=== PATIENT | female | born 1965 | race Caucasian/White ===

== ENCOUNTER 2023-07-14 14:32 | Inpatient (IN) | payer BC, SELFPAY ==
[2023-07-14] VITALS (10 sets, daily range): BP systolic 100–137; BP diastolic 51–76; BMI 22.0
[2023-07-14 12:20] LABS: % Basophils 0.5 % (0-2); % Eosinophils 0.9 % (0-6); % Immature Granulocytes 0.5 % (0-0.5); % Lymphocytes 10.8 % (20.5-51.1); % Monocytes 6.5 % (1.7-9.3); % Neutrophils 80.8 % (42.2-75.2); Absolute Basophils 0.1 10^3/uL (0-0.2); Absolute Eosinophils 0.1 10^3/uL (0-0.7); Absolute Immature Granulocytes 0.1 10^3/uL (0-0.05); Absolute Lymphocytes 1.1 10^3/uL (1.2-3.4); Absolute Monocytes 0.6 10^3/uL (0.1-0.6); Absolute Neutrophils 7.9 10^3/uL (1.4-6.5); Hematocrit 32.5 % (37.0-47.0); Hemoglobin 11.2 g/dL (12.0-16.0); Mean Corp Hgb Conc. 34.5 g/dL (33.0-37.0); Mean Corpuscular Hgb 30.9 pg (27.0-31.0); Mean Corpuscular Volume 89.5 fL (81.0-99.0); Mean Platelet Volume 9.9 fL (7.4-10.4); Nucleated Red Blood Cells % 0 %; Platelet Count 225 10^3/uL (130-400); Red Blood Cell Count 3.63 10^6/uL (4.20-5.40); White Blood Cell Count 9.7 10^3/uL (4.8-10.8)
[2023-07-14 12:28] LABS: ALT (SGPT) 19 U/L (0-35); AST (SGOT) 23 U/L (14-36); Albumin 3.6 g/dl (3.5-5.0); Alkaline Phosphatase 68 U/L (38-126); Blood Urea Nitrogen 7 mg/dl (7-17); Calcium 8.5 mg/dl (8.4-10.2); Carbon Dioxide 29 mmol/L (22-30); Chloride 101 mmol/L (98-107); Estimated Creatinine Clearance 83 ml/min; Glucose 159 mg/dl (70-99); Potassium 3.5 mmol/L (3.5-5.1); Sodium 133 mmol/L (135-145); Total Bilirubin 0.6 mg/dl (0.2-1.3); Total Protein 5.7 g/dl (6.3-8.2); eGFR > 60.00
--- NOTE | 2023-07-14 12:31 | ED.GENMED ---
History of Present Illness
General
Chief Complaint: Rectal Bleeding
Source: patient
Exam Limitations: none
Time Seen by Provider: 07/14/23 11:36
Nursing documentation reviewed up to this point in time: agreed with
Travel History
Have you had any contact with someone who has COVID-19?: No
Do you have any symptoms of coronavirus? Fever > 100 degrees, chills, cough, shortness of breath, sore throat, loss of taste or smell, muscle aches, or headache?: No
History of Present Illness
History of Present Illness:
57-year-old female presents to the emergency department due to rectal bleeding. She states she had a large amount of bright red blood, in the toilet. She was banded 07/01/[address] Pollock.
Past History
Past History
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
ED Past Surgical History: Other (Hemorrhoid banding)
Social History
Tobacco: Non-smoker
Alcohol: None
Drug: None
Personal:
Living: with family
Review of Systems
Review of Systems
Allergies reviewed?: Yes
All Other Systems: Not applicable
Constitutional: Reports no symptoms
EENT: Reports no symptoms
Respiratory: Reports no symptoms
Cardiac: Reports syncope
ABD/GI: Reports no symptoms
: Reports no symptoms
Musculoskeletal: Reports no symptoms
Skin: Reports no symptoms
Neurological: Reports weakness
Endocrine: Reports no symptoms
Hematologic/Lymphatic: Reports no symptoms
Psychiatric: Reports no symptoms
Phy Exam
Physical Exam
Physical Exam:
Physical Exam
General: no apparent distress, not acutely ill
Neck: supple. no meningeal signs. normal posterior pharynx
Heart: s1/s2 regular rate and rhythm, no murmur. equal radial
pulses.
HEENT: Pupils equal round reactive to light, EOMI
Lungs: no acute respiratory distress. clear bilaterally
Abdomen: normal bowel sounds. not tender. no CVAT, rectal exam shows external hemorrhoids with no bleeding
Neuro: alert and oriented. no focal neurological deficits cranial nerves II through XII intact
Skin: no rash
Psychiatric: well kept. interactive and cooperative
Extremities: no edema. no calf tenderness. negative homans. good distal pulses
Course
Orders/Labs/Results
Orders:
Orders
07/14/23 11:49
Cardiac Monitoring- Treatment ONCE
IV Insert/Care/Rem.- Treatment PRN
O2 Therapy [RESP] Urgent
Titrate/Wean O2 to maintain O2 sat greater than (%): 93
Special Instructions: MAINTAIN CONTINOUS O2 SATS > OR = 93%
Pulse Ox/spot Check [RESP] Urgent
Quantity: 1
Special Instructions: ON ROOM AIR
07/14/23 11:54
Type+Screen Urgent
Complete Blood Count/With Diff Urgent
Comprehensive Metabolic Panel Urgent
Glycohemoglobin (HgbA1c) Urgent
PTT Urgent
Prothrombin Time Urgent
07/14/23 13:15
Tranexamic Acid 1000 mg/100 ml [Tranexamic Acid] 1,000 mg in 100 ml IV ONCE
07/14/23 13:35
Add On- LAB Urgent
Tests Added?: [id number]
07/14/23 14:10
Consult Colorectal Surgery [ColoRectal Surgery Consult] Routine
Consulting Provider: Martin Pollock
Was physician already notified: Yes
Reason for consult: Rectal bleeding with clots, recent hemorrhoidal banding
07/14/23 14:11
Admit/Transfer Patient As Directed
Co-Sign Provider:
Level of Care: Inpatient admission
Assign to:: Medical/Surgical
Physician / Group: huma maurice
Diagnosis: Bright red rectal bleeding recent hemorrhoidal banding
Reason for Hospitalization: Bright red rectal bleeding recent hemorrhoidal banding
Expected length of stay greater than two midnights?: Yes
ELOS- Estimated Length of Stay in days: 3
I certify the patient meets the requirements for IP care: Yes
Code Status As Directed
Resuscitation Status: Full Code
07/14/23 14:14
Acetaminophen [Tylenol] 650 mg PO Q6HPRN PRN
Abnormal Lab Results
07/14/23
11:54
RBC 3.63 L 10^6/uL
(4.20-5.40)
Hgb 11.2 L g/dL
(12.0-16.0)
Hct 32.5 L %
(37.0-47.0)
Abs Immat Gran (auto) 0.1 H 10^3/uL
(0-0.05)
Absolute Neuts (auto) 7.9 H 10^3/uL
(1.4-6.5)
Absolute Lymphs (auto) 1.1 L 10^3/uL
(1.2-3.4)
Neutrophils % 80.8 H %
(42.2-75.2)
Lymphocytes % 10.8 L %
(20.5-51.1)
Sodium 133 L mmol/L
(135-145)
Glucose 159 H mg/dl
(70-99)
Total Protein 5.7 L g/dl
(6.3-8.2)
07/14/23 11:54
07/14/23 11:54
Vital Signs
Initial and Last Documented VS:
Initial Vital Signs
Temp Pulse Resp BP Pulse Ox
97.4 F 85 19 137/73 100
07/14/23 11:40 07/14/23 11:40 07/14/23 11:40 07/14/23 11:40 07/14/23 11:40
Last Documented Vital Signs
Temp Pulse Resp BP Pulse Ox
97.4 F 88 12 121/52 97
07/14/23 11:40 07/14/23 15:15 07/14/23 15:15 07/14/23 15:00 07/14/23 15:15
MDM/Problems Addressed
Differential Diagnosis Includes:
Rectal bleeding
MDM/Problems Addressed:
57-year-old female with rectal bleeding, no active bleeding at this time on exam. 3 g hemoglobin drop. Admit to hospitalist. Colorectal surgery to evaluate.
Chronic conditions affecting care: Other (Stiff person syndrome, rectal bleeding)
Acute Exacerbation and/or Progression of Chronic Illness: Other (Rectal bleeding, hemorrhoids)
*Pulse Oximetry
Patient hypoxic: no
*EKG
Interpreted by ED Provider?: NA
*Electric Meter Technician Interpretation
Rate: Electric Meter Technician- N/A
*Critical Care Note
Total Time (30-74mins, 75-104mins- exclusive of procedures): Not Applicable
Patient Management
Social determinants of health affecting care: Strong social support
Discussion with other providers: Hospitalist and Log Peeler (Colorectal surgery)
Escalation/DeEscalation of care consider admission/obs:
Admit indicated
ED Attending Note
-
Portions of this chart may have been created with voice recognition software.� Occasional wrong word or��sound alike� substitutions may have occurred due to the inherent limitations of voice recognition software.
Discharge Plan
Departure
Patient Disposition: Admit
Date of Disposition: 07/14/23
Time of Disposition: 13:11
Admit to: Telemetry
Presentation/result/management discussed w/ accepting MD/DO: Hospitalist
Condition: Good
Discharge Problem:
Bright red rectal bleeding
Interventions
Interventions:
*Risk Screen - Suicide Last Done: 07/14/23 11:47
*General Assessment Last Done: 07/14/23 11:47
*Neglect/Abuse Screening Last Done: 07/14/23 11:47
ED- Fall Risk Assessment Last Done: 07/14/23 11:51
*ED COVID-19 Vaccine History Last Done: 07/14/23 11:47
ZI-Dnaozl-Fvazyzrvwt Assessment Last Done: 07/14/23 12:29
ED- Cardiac Assessment Last Done: 07/14/23 12:29
ED- Pulmonary Assessment Last Done: 07/14/23 12:29
[2023-07-14 12:32] LABS: APTT 27.4 Sec (23.4-35.0); INR 1.08; PT 14.3 Sec (11.4-14.6)
--- NOTE | 2023-07-14 13:05 | CON.CRS ---
Consultation
-
Date/Time Consultation Requested: 07/14/2023, 12:31
Date/Time Consultation Performed: 07/14/2023, 13:30
Requesting Provider: Caesar Sandoval MD
Performing Provider: Jackson Pollock MD
Reason for Consultation: rectal bleeding
Medical History
-
Chief Complaint: rectal bleeding
History of Present Illness:
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 The patient was recently seen by Dr. Pollock as an outpatient in the office
on 07/01/2023. Prior to this she was diagnosed with a bleeding internal hemorrhoid at a prior office visit with him. She has been bleeding rectally off and on for years of which she has been to an [facility] in the past. Her main complaint at the
office visit 2 weeks ago was bright red blood per rectum with clots. During the office visit she underwent a rubber band ligation of the hemorrhoid in the right posterior position. She tolerated the procedure well and a CBC was ordered as an
outpatient. Her last colonoscopy was in July 2022 however no reports are available for review. She does follow with a senior teller at [facility] and has been on MiraLAX daily. Of note, she does have triple negative breast
cancer diagnosed Apr 2021, lumpectomy x 3 with radiation with a spot in her right lung, now with newly diagnosed right middle lobe spot on 07/10/2023 at [facility].
She presents today to the ER due to a large amount of bright red blood in the toilet. She states it occurred around 8am this morning and happened about 15 times. She has pictures that she are showing me on her phone. In the toilet is bright red
blood with some darker clots. After the 15th episode she had a syncopal episode for about a minute. She vomited once prior to this and continues to have nausea. She typically has abdominal pain but today she states it is a little worse today. Her
hemoglobin is 11.2 in the ER. Her vital signs are normal. She is receiving 1 g of Tranexamic acid in the ER. We have been consulted for further surgical opinion.
Past Medical History
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
Past Surgical History: Other (Bladder lift surgery and rectocele repair in 2010)
Social History
Tobacco: Non-Smoker
Alcohol: None
Family History
Family History: Reviewed & Not Pertinent
Allergies / Home Medications
Allergy/AdvReac Type Severity Reaction Status Date / Time
amitriptyline Allergy Unknown Verified 07/14/23 11:46
amoxicillin Allergy Unknown Verified 07/14/23 11:46
buspirone Allergy Unknown Verified 07/14/23 11:46
celecoxib Allergy Unknown Verified 07/14/23 11:46
Iodinated Contrast Media Allergy Unknown Verified 07/14/23 11:46
lidocaine Allergy Unknown Verified 07/14/23 11:46
nitrofurantoin Allergy Unknown Verified 07/14/23 11:46
oxycodone Allergy Unknown Verified 07/14/23 11:46
pregabalin Allergy Unknown Verified 07/14/23 11:46
sulfamethoxazole Allergy Unknown Verified 07/14/23 11:46
tramadol Allergy Unknown Verified 07/14/23 11:46
venlafaxine Allergy Unknown Verified 07/14/23 11:46
Review of Systems
-
History Source: Patient
Abdomen/GI: Other (rectal bleeding)
A 10 point review of systems was completed, and was negative except as per HPI.
Physical Exam
Vital Signs
Temp 97.4 F 07/14/23 11:40
Pulse 98 07/14/23 12:15
Resp Rate 21 07/14/23 12:15
Blood pressure 125/53 07/14/23 12:00
SaO2 100 07/14/23 12:15
07/13/23 07/14/23 07/15/23
06:59 06:59 06:59
Actual Weight 55.3 kg
Body Mass Index (BMI) 22.0
Lab Results / Allergies
07/14/23 11:54
07/14/23 11:54
WBC 9.7 10^3/uL (4.8-10.8) 07/14/23 11:54
Hgb 11.2 g/dL (12.0-16.0) L 07/14/23 11:54
Hct 32.5 % (37.0-47.0) L 07/14/23 11:54
Plt Count 225 10^3/uL (130-400) 07/14/23 11:54
Abs Immat Gran (auto) 0.1 10^3/uL (0-0.05) H 07/14/23 11:54
Neutrophils % 80.8 % (42.2-75.2) H 07/14/23 11:54
Allergy/AdvReac Type Severity Reaction Status Date / Time
amitriptyline Allergy Unknown Verified 07/14/23 11:46
amoxicillin Allergy Unknown Verified 07/14/23 11:46
buspirone Allergy Unknown Verified 07/14/23 11:46
celecoxib Allergy Unknown Verified 07/14/23 11:46
Iodinated Contrast Media Allergy Unknown Verified 07/14/23 11:46
lidocaine Allergy Unknown Verified 07/14/23 11:46
nitrofurantoin Allergy Unknown Verified 07/14/23 11:46
oxycodone Allergy Unknown Verified 07/14/23 11:46
pregabalin Allergy Unknown Verified 07/14/23 11:46
sulfamethoxazole Allergy Unknown Verified 07/14/23 11:46
tramadol Allergy Unknown Verified 07/14/23 11:46
venlafaxine Allergy Unknown Verified 07/14/23 11:46
Physical Exam
General: Well Developed and Well Nourished
GI: Soft, Non Distended and Tender (mild-suprapubic)
Rectal: Other (external hemorrhoids, no blood noted on finger tip, no masses noted)
Skin: Warm and Dry
Neuro: AO x 3
Data Reviewed
-
Labs: Labs Reviewed by me, Discussed with Physician and Discussed with Patient
Old Records: Reviewed
Assessment / Plan
-
Assessment: 57yo female with a recent h/o rubber band ligation of a hemorrhoid by Dr. Pollock presents with rectal bleeding
Plan:
1. Patient is currently receiving 1g tranexamic acid to help with clotting.
2. Trend hemoglobin - recheck another one tonight.
3. Remain NPO for now.
4. Monitor vitals and recheck labs in the AM.
5. Discussed with Dr. Pollock.
[2023-07-14] MEDS: TRANEXAMIC ACID 100 IV (13:22)
--- NOTE | 2023-07-14 13:37 | HPS.HSE ---
Addendum entered and electronically signed by Ahsan Quiroz MD 07/14/23 15:42:
I saw and examined the patient.
The SWEATBAND FLANGER or PA's note was reviewed and I agree with the note.
Comment:
Patient 57 years old female with past medical history metastatic breast cancer, stiff person syndrome, hemorrhoids status post band ligation recently by colorectal surgery recently came into the hospital with bright blood per rectum. Patient stated
that today she is having multiple episodes of bright blood per rectum some associated with blood clots, this was associated with a syncope event and she is having significant fatigue and shortness of breath. Rectal bleeding happened about 15 times.
She also has abdominal pain, moderate intensity, intermittent, diffuse, crampy in nature. No chest pain. No fevers. She has some chills per patient report. She did have some nausea and vomiting as well. Patient had a colonoscopy back in
July 2022 but no reports in hand. Prior to her colorectal procedure she had been having rectal bleeding for years but stopped since procedure. She does take bowel regimen on a regular basis. She also has been diagnosed with triple negative
breast cancer since back in 2020 status postlumpectomy and radiation and chemo. She was just recently diagnosed with right lung nodule/mass for which there are plans to get radiation as outpatient. Her hemoglobin as outpatient was in the 13-14
range as I was able to see portal and hemoglobin today 7.2 in the ED. Colorectal surgery consulted. She was referred to hospitalist for further evaluation.
Physical exam:
General: Well Developed, Well Nourished. Acutely ill
HEENT: Normocephalic, Atraumatic and Moist Mucous Membranes
Respiratory: Clear to Auscultation; Negative Wheezes, Rales or Rhonchi
Cardiac: Regular Rhythm and S1/S2
GI: Soft, Tender diffusely, and Nondistended
Musculoskeletal: No Clubbing, No Cyanosis and No Edema
Neuro: Awake, Alert and Oriented
Psych: Anxious
A/P:
Acute lower GI bleed likely related to hemorrhoidal bleeding--> continue to monitor hemoglobin, discussed about blood transfusion and will do if required, IV fluids, status post Tranexamic acid infusion in the ER, colorectal surgery consult. Will
give further commendations based on clinical course.
Original Note:
Family Physician
-
Family Physician: Jonelle King
Chief Complaint
-
Rectal bleeding
History of Present Illness
57-year-old male presenting to the ER for large amount of bright red blood in the toilet toda x 11 episodes. Approximately 6 episodes were bright red in color and 4-5 episodes bright red with black clots she did have last bowel movement with brown
formed stool and some black formed stool. She is complaining of generalized abdominal pain with some nausea. She had hemorrhoidal banding on 07/01/[address] Pollock. Her current hemoglobin is 11.2. She denies fever, chills, abdominal pain,
nausea, vomiting, diarrhea, chest pain, palpitations, shortness of breath, cough, urinary symptoms. She is past medical history of hemorrhoids, stiff person syndrome Dx 2017 with spasms to left side of body and fatigue, triple negative right breast
CA to right lung with lumpectomy x 3 and radiation April, recent right middle lobe lung nodule 11 mm found on PET scan 07/10/2023 patient follows with oncology at [place]
Medical History
Past Medical History
Past Medical History: Reports Other
Additional Past Medical History:
hemorrhoids with banding 07/01/[address] Pollock
stiff person syndrome X 2017 gets left-sided body spasms and fatigue
Triple negative breast cancer right breast to lung with radiation April 2021 lumpectomy x 3
Recent right middle lobe 11 mm nodule found on PET scan 07/10/2023
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
Past Surgical History: Reports Other
Additional Past Surgical History:
hemorrhoids with banding 07/01/[address] Pollock
Right lumpectomy times 17 April 2021
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
Bladder lift with removal of mesh
Social History
Tobacco: Non-smoker
Alcohol: None
Drug: None
Personal:
Living: With Family ()
Employment: Disabled
Family History
Family History: Other (Mother Alzheimer's age 84 father age 56 PR 1 brother history CAD 72 1 sister with autoimmune disease 1 sister with breast cancer)
Allergies / Home Medications
Allergies reflects when Allergies were last updated in [facility].
Home Medications with original date entered in [facility]
Allergy/Medication List:
Allergies
Allergy/AdvReac Type Severity Reaction Status Date / Time
amitriptyline Allergy Unknown Verified 07/14/23 11:46
amoxicillin Allergy Unknown Verified 07/14/23 11:46
buspirone Allergy Unknown Verified 07/14/23 11:46
celecoxib Allergy Unknown Verified 07/14/23 11:46
Iodinated Contrast Media Allergy Unknown Verified 07/14/23 11:46
lidocaine Allergy Unknown Verified 07/14/23 11:46
nitrofurantoin Allergy Unknown Verified 07/14/23 11:46
oxycodone Allergy Unknown Verified 07/14/23 11:46
pregabalin Allergy Unknown Verified 07/14/23 11:46
sulfamethoxazole Allergy Unknown Verified 07/14/23 11:46
tramadol Allergy Unknown Verified 07/14/23 11:46
venlafaxine Allergy Unknown Verified 07/14/23 11:46
Home Medications
Lactobac no.2-Bifidobac no.1-S. thermo 112.5 billion cell capsule (Visbiome) 1 cap PO HS 07/14/23
acetaminophen 500 mg tablet (Tylenol Extra Strength) 500 mg PO BIDPRN PRN mild pain 07/14/23
aspirin 81 mg tablet,delayed release 81 mg PO HS 07/14/23
cholecalciferol (vitamin D3) 25 mcg (1,000 unit) tablet 25 mcg PO QPM 07/14/23
cranberry extract 650 mg capsule (Theracran) 650 mg PO NOON 07/14/23
diazepam 2 mg tablet 2 mg PO QIDPRN PRN stiff person syndrome 07/14/23
magnesium glycinate 100 mg tablet 100 mg PO HS 07/14/23
omega [id number] oil 1,000 mg (120 mg-180 mg) capsule (Fish Oil) 1 cap PO QPM 07/14/23
polyethylene glycol 3350 17 gram oral powder packet (Miralax) 17 g PO HS 07/14/23
Review of Systems
-
History Source: Patient and Family ( at bedside)
A 12 point ROS was completed and negative except as noted: Yes
Constitutional: Denies Fever, Fatigue or Chills
EENT: Denies Sore Throat or Runny Nose
Respiratory: Denies Cough or Trouble Breathing
Cardiac: Denies Chest Pain, Diaphoresis, Palpitations or Syncope
Abdomen/GI: Reports Abdominal Pain, Nausea and Bloody Stools; Denies Vomiting, Diarrhea or Constipated
: Denies Dysuria, Frequency, Flank Pain, Incontinence or Difficulty Voiding
Musculoskeletal: Denies Joint Pain or Edema
Skin: Denies Itching or Rash
Neurological: Reports Dizzy; Denies Headache or Weakness
Endocrine: Reports No Symptoms
Hematologic/Lymphatic: Reports No Symptoms
Psych: Reports Anxiety
Physical Exam
Vital Signs
Vital Signs
Temp Pulse Resp BP Pulse Ox
97.4 F 98 21 125/53 100
07/14/23 11:40 07/14/23 12:15 07/14/23 12:15 07/14/23 12:00 07/14/23 12:15
Physical Exam
General: Conversant and Pain; No Fever or Chills
HEENT: NormoCephalic, Anicteric, Moist mucous membranes, PERRLA, Griffin Conjunctivae and No Ptosis
Respiratory: Clear; No Wheezes, Rales or Rhonchi
Cardiac: S1/S2 and Regular Rhythm; No Murmur, Rub, Gallop or Peripheral Edema
Breast: Deferred by me
GI: Soft, Non Distended, Normal Bowel Sounds, Tender (Generalized abdominal tenderness) and No Hepatosplenomegaly
Rectal: Deferred by Provider
Genito-urinary: Deferred by me
Musculoskeletal: No Clubbing, No Cyanosis and No Edema
Skin: Warm and Dry; No Rash
Neuro: AO x 3, No Motor Deficits, Nonfocal/grossly intact, Cranial Nerves Intact and No Sensory Deficits; No Slurred Speech, Facial Droop or Tremors
Psych: Anxious
Laboratory Results
-
07/14/23 11:54
07/14/23 11:54
Laboratory Results
PT 14.3 Sec (11.4-14.6) 07/14/23 11:54
INR 1.08 07/14/23 11:54
APTT 27.4 Sec (23.4-35.0) 07/14/23 11:54
Total Bilirubin 0.6 mg/dl (0.2-1.3) 07/14/23 11:54
AST 23 U/L (14-36) 07/14/23 11:54
ALT 19 U/L (0-35) 07/14/23 11:54
Alkaline Phosphatase 68 U/L (38-126) 07/14/23 11:54
Impression/Plan
-
Impression/plan:
Inpt MedSurg
#Rectal bleeding recent hemorrhoidal banding 07/01/2023
-Consult Dr. Pollock
-Hgb 11.2 dropped from 14 on 07/01/2023
-Type and screen obtained in the ER
-Follow CBC
-H&H
-scoplamaine patch prn nausea
-Patient given transexamic acid infusion in ER
#Mild hyperglycemia
BS 159, check HgbA1c
#Hx stiff person syndrome Dx 2016
-Patient gets left-sided- muscle spasms and fatigue
- takes Valium
-Reports can only take scopolamine patch for nausea
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
Treated with radiation and lumpectomy x 3
#Recent right middle lobe nodule 11 mm found on PET scan 07/10/2023
Patient to follow with oncologist at [place] as thought to be recurrence of her metastatic breast cancer
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
#Bladder lift with removal of mesh
DVT prophylaxis
SCDs
Full code
[2023-07-14 15:35] LABS: Glycohemoglobin (HgbA1c) 5.5 % (4.0-5.6)
[2023-07-14] MEDS: TYLENOL 650 MG PO (16:27)
--- NOTE | 2023-07-14 17:23 | PTCARENOTE ---
Pt received from the ED via stretcher. Transport was w/o incident. Pt is AAOx3, HRR, no edema noted, lungs are clear, abd soft. No rectal bleeding noted at this time. VSS, Pt is afebrile. Pt instructed on plan of care, Pt and Pt's
verbalized understanding of instructions. Call ramirez is within reach.
--- NOTE | 2023-07-14 17:43 | VATNOTE ---
Attempts to restart IV unsuccessful , another VAT nurse to attempt.
[2023-07-14 18:06] LABS: Hematocrit 30.1 % (37.0-47.0); Hemoglobin 10.4 g/dL (12.0-16.0)
[2023-07-14] MEDS: NSS 1000 IV (19:36)
[2023-07-14] MEDS: VALIUM 2 MG PO (20:34)
[2023-07-15] MEDS: TYLENOL 650 MG PO ×3 (00:34→23:55)
[2023-07-15 00:51] LABS: Hematocrit 26.3 % (37.0-47.0); Hemoglobin 9.1 g/dL (12.0-16.0)
[2023-07-15 06:23] LABS: % Basophils 0.8 % (0-2); % Eosinophils 2.9 % (0-6); % Immature Granulocytes 0.3 % (0-0.5); % Lymphocytes 35.1 % (20.5-51.1); % Monocytes 9.7 % (1.7-9.3); % Neutrophils 51.2 % (42.2-75.2); Absolute Eosinophils 0.1 10^3/uL (0-0.7); Absolute Lymphocytes 1.3 10^3/uL (1.2-3.4); Absolute Monocytes 0.4 10^3/uL (0.1-0.6); Hematocrit 25.3 % (37.0-47.0); Hemoglobin 8.7 g/dL (12.0-16.0); Mean Corp Hgb Conc. 34.4 g/dL (33.0-37.0); Mean Corpuscular Hgb 30.6 pg (27.0-31.0); Mean Corpuscular Volume 89.1 fL (81.0-99.0); Mean Platelet Volume 10.3 fL (7.4-10.4); Nucleated Red Blood Cells % 0 %; Platelet Count 160 10^3/uL (130-400); Red Blood Cell Count 2.84 10^6/uL (4.20-5.40); Red Cell Dist. Width 13.1 % (11.5-14.5); White Blood Cell Count 3.8 10^3/uL (4.8-10.8)
[2023-07-15 06:35] LABS: Blood Urea Nitrogen 6 mg/dl (7-17); Calcium 8.8 mg/dl (8.4-10.2); Carbon Dioxide 27 mmol/L (22-30); Chloride 105 mmol/L (98-107); Estimated Creatinine Clearance 83 ml/min; Glucose 95 mg/dl (70-99); Potassium 3.4 mmol/L (3.5-5.1); Sodium 136 mmol/L (135-145); eGFR > 60.00
--- NOTE | 2023-07-15 07:32 | W.PN.HOSP.TC ---
Today's Communication/Plan
-
IV fluids, monitor hemoglobin, keep n.p.o. and diet per surgery.
Assessment / Plan
Assessment / Plan
Physical exam:
General: Well Developed, Well Nourished.�
HEENT: Normocephalic, Atraumatic and Moist Mucous Membranes
Respiratory: Clear to Auscultation; Negative Wheezes, Rales or Rhonchi
Cardiac: Regular Rhythm and S1/S2
GI: Soft, non tender diffusely, and Nondistended
Musculoskeletal: No Clubbing, No Cyanosis and No Edema
Neuro: Awake, Alert and Oriented
Psych: Anxious
A/P:
# Acute lower GI bleeding with rectal bleeding and recent hemorrhoidal banding 07/01/2023
-Bleeding appears to have stopped but continue to monitor.
-Consult Dr. Pollock (colorectal surgeon) appreciated--> patient n.p.o. today and follow-up further colorectal surgery recommendations
-On IV fluids
-Hgb 11.2--> 10.4--> 9.1--> 8.7
-Type and screen obtained in the ER
-Follow CBC
-H&H
-scoplamaine patch prn nausea
-Patient given transexamic acid infusion in ER
-Discharge disposition once cleared by colorectal surgery.
#Hypokalemia
-Replace IV potassium while NPO
-Trend potassium and check magnesium in a.m.
#Mild hyperglycemia, stress related.
-BS 159, check HgbA1c--> 5.5
-No need for further workup
#Hx stiff person syndrome Dx 2016
-Patient gets left-sided- muscle spasms and fatigue
- takes Valium
-Reports can only take scopolamine patch for nausea
-PT eval
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
Treated with radiation and lumpectomy x 3
#Recent right middle lobe nodule 11 mm found on PET scan 07/10/2023
Patient to follow with oncologist at [place] as thought to be recurrence of her metastatic breast cancer
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
#Bladder lift with removal of mesh
DVT prophylaxis
SCDs
Full code
Anticipated Discharge: 24 - 48 hours
Subjective/Interval History
-
Date of Service: July 15, 2023
Patient denies any more rectal bleeding overnight or today. Nausea on and off but no vomiting. Abdominal pain improving. Afebrile
Objective Data
-
Labs:
Laboratory Results
07/15/23 07/15/23
00:24 05:37
WBC 3.8 L
Hgb 9.1 L 8.7 L
Hct 26.3 L 25.3 L
Plt Count 160 D
Sodium 136
Potassium 3.4 L
Chloride 105
Carbon Dioxide 27
BUN 6 L
Creatinine 0.6
Glucose 95
Calcium 8.8
Vital Signs:
Vital Signs
Temp Pulse Resp BP Pulse Ox
98.1 F 82 16 125/65 99
07/14/23 23:47 07/14/23 23:47 07/14/23 23:47 07/14/23 23:47 07/14/23 23:47
I&O
07/14/23 07/15/23 07/16/23
06:59 06:59 06:59
Intake Total 240 / 240
Balance 240 / 240
[2023-07-15 07:58] VITALS: BP 120/73
[2023-07-15] MEDS: VALIUM 2 MG PO ×3 (08:25→21:31)
--- NOTE | 2023-07-15 08:33 | PTCARENOTE ---
assumed care of pt from previous shift. assisted to BSC-voided large amount of clear yellow urine. no stool or bleeding noted. passing flatus. Potassium infusion started as ordered. pt unable to tolerate due to severe burning-Rate of IV
infusion lowered and Ice applied to IV site. pt crying and refusing Potassium infusion at this time. Dr Quiroz notified. PRN Valium provided per pt request.
will observe.
[2023-07-15 09:57] VITALS: BP 140/62; BP 140/75; PULSE 134; PULSE 89
[2023-07-15] MEDS: MIRALAX 8.5 GRAMS PO (10:49)
--- NOTE | 2023-07-15 10:56 | W.PN.CRS1 ---
Today's Communication / Plan
-
repeat hgb at noon
remain npo
Assessment/Plan
-
Assessment: 57yo female with a recent h/o rubber band ligation of a hemorrhoid by Dr. Pollock presents with rectal bleeding
Plan:
1. Hgb 8.7 from 9.1. Will repeat at noon.
2. Vitals normal.
3. Remain NPO for now.
4. Restart home dose of Miralax.
5. Monitor for any further bleeding.
6. Consider IV iron.
Subjective Data
Subjective Data
Date of Service: July 15, 2023
Patient states she is nauseous. She denies any vomiting. She no bleeding overnight. She has not yet had a bowel movement since yesterday. She still has mild abdominal pain.
Objective Data
-
Vital Signs
Temp Pulse Resp BP Pulse Ox
98 F 83 18 120/73 98
07/15/23 07:58 07/15/23 07:58 07/15/23 07:58 07/15/23 07:58 07/15/23 07:58
Intake & Output
07/14/23 07/15/23 07/16/23
06:59 06:59 06:59
Intake Total 240 / 240
Balance 240 / 240
Intake:
Oral fluids 240 / 240
Other:
Number of approximated SMALL 1
amounts of urine
Number of approximated MODERATE 1
amounts of urine
Lab Results
07/15/23 13:00
07/15/23 05:37
Physical Exam
-
General: No Acute Distress and AOx3
Abdomen: Soft, Non Distended and Tender (Very mild suprapubic)
Skin: Warm and Dry
[2023-07-15 12:22] LABS: Hematocrit 27.4 % (37.0-47.0); Hemoglobin 9.6 g/dL (12.0-16.0)
--- NOTE | 2023-07-15 12:44 | CM ---
CM following re: discharge planning.
Reviewed pt's chart, met with pt and pt's at bedside.
Pt is a 57 year old female, admitted with primary dx of Acute lower GI bleeding with rectal bleeding and recent hemorrhoidal banding 07/01/2023.
Pt reports she lives with in a split level house, no steps to enter, 4 steps down and 7 steps up inside the house, has 3 supportive children. Pt described herself as independent in all areas [employer], uses a cane, does not work, does not drive.
PCP: Jonelle King
Pharmacy: [facility].
D/C plan: home with anticipated no needs. Will follow up colorectal surgeon recommendation.
CM will follow with discharge plan updates as hospitalization progresses
[2023-07-15] MEDS: NSS IV (13:00)
[2023-07-15 15:22] VITALS: BP 126/76
[2023-07-15 23:10] VITALS: BP 111/60
[2023-07-16] MEDS: NSS IV (02:46)
[2023-07-16] MEDS: VALIUM 2 MG PO ×3 (04:15→18:44)
[2023-07-16 06:39] LABS: Hematocrit 26.6 % (37.0-47.0); Hemoglobin 9.1 g/dL (12.0-16.0); Mean Corp Hgb Conc. 34.2 g/dL (33.0-37.0); Mean Corpuscular Hgb 30.8 pg (27.0-31.0); Mean Corpuscular Volume 90.2 fL (81.0-99.0); Mean Platelet Volume 10.2 fL (7.4-10.4); Platelet Count 157 10^3/uL (130-400); Red Blood Cell Count 2.95 10^6/uL (4.20-5.40); Red Cell Dist. Width 13.2 % (11.5-14.5); White Blood Cell Count 3.2 10^3/uL (4.8-10.8)
[2023-07-16 06:59] LABS: Blood Urea Nitrogen 4 mg/dl (7-17); Calcium 8.8 mg/dl (8.4-10.2); Carbon Dioxide 28 mmol/L (22-30); Chloride 106 mmol/L (98-107); Estimated Creatinine Clearance 71 ml/min; Glucose 97 mg/dl (70-99); Iron 75 ug/dl (37-170); Potassium 3.6 mmol/L (3.5-5.1); Sodium 135 mmol/L (135-145); eGFR > 60.00
[2023-07-16 07:08] LABS: Percent Saturation 29 % (20-50); Total Iron Binding Capacity 256 ug/dl (265-497)
[2023-07-16 07:10] VITALS: BP 124/79
[2023-07-16 08:06] LABS: Folate > 20.0 ng/ml (2.76-20); Vitamin B12 575 pg/ml (239-931)
--- NOTE | 2023-07-16 08:30 | W.PN.HOSP.TC ---
Addendum entered and electronically signed by Ahsan Quiroz MD 07/16/23 15:51:
Acute blood loss anemia
Original Note:
Today's Communication/Plan
-
Continue monitor hemoglobin.
Assessment / Plan
Assessment / Plan
Physical exam:
General: Well Developed, Well Nourished.�
HEENT: Normocephalic, Atraumatic and Moist Mucous Membranes
Respiratory: Clear to Auscultation; Negative Wheezes, Rales or Rhonchi
Cardiac: Regular Rhythm and S1/S2
GI: Soft, non tender diffusely, and Nondistended
Musculoskeletal: No Clubbing, No Cyanosis and No Edema
Neuro: Awake, Alert and Oriented
Psych: Anxious
A/P:
# Acute lower GI bleeding with rectal bleeding and recent hemorrhoidal banding 07/01/2023
-Bleeding appears to have stopped but continue to monitor.
-Consult Dr. Pollock (colorectal surgeon) appreciated--> patient n.p.o. today and follow-up further colorectal surgery recommendations
-On IV fluids
-Hgb 11.2--> 10.4--> 9.1--> 8.7-->9.1
-Type and screen obtained in the ER
-Follow CBC
-H&H
-scoplamaine patch prn nausea
-Patient given transexamic acid infusion in ER
-Discharge disposition once cleared by colorectal surgery.
#Hypokalemia
-Came back to normal today
#Palpitations
-I told her we will put her on cardiac monitoring today but she refuses at this point and she wants to monitor her heart rate by herself.
#Mild hyperglycemia, stress related.
-BS 159, check HgbA1c--> 5.5
-No need for further workup
#Hx stiff person syndrome Dx 2016
-Patient gets left-sided- muscle spasms and fatigue
- takes Valium
-Reports can only take scopolamine patch for nausea
-PT eval
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
Treated with radiation and lumpectomy x 3
#Recent right middle lobe nodule 11 mm found on PET scan 07/10/2023
Patient to follow with oncologist at [place] as thought to be recurrence of her metastatic breast cancer
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
#Bladder lift with removal of mesh
DVT prophylaxis
SCDs
Full code
Anticipated Discharge: Within 24 hours
Subjective/Interval History
-
Date of Service: July 16, 2023
Patient just had a bowel movement this morning, no bleeding. Does have multiple complaints including generalized weakness, palpitations, anxiety. No chest pain or shortness of breath.
Objective Data
-
Labs:
Laboratory Results
07/16/23
05:54
WBC 3.2 L
Hgb 9.1 L
Hct 26.6 L
Plt Count 157
Sodium 135
Potassium 3.6
Chloride 106
Carbon Dioxide 28
BUN 4 L
Creatinine 0.7
Glucose 97
Calcium 8.8
Vital Signs:
Vital Signs
Temp Pulse Resp BP Pulse Ox
97.8 F 81 16 111/60 100
07/15/23 23:10 07/15/23 23:10 07/15/23 23:10 07/15/23 23:10 07/15/23 23:10
I&O
07/15/23 07/16/23 07/17/23
06:59 06:59 06:59
Intake Total 240 / 240 1200 / 1200
Balance 240 / 240 1200 / 1200
Review of Systems
-
All other systems: Reviewed and negative
--- NOTE | 2023-07-16 10:21 | PN.CDI ---
CDI
- -
CDI:
Physician Documentation Request
Admit Date: 07/14/23 14:32
Dear Doctor Gabriella ,
Please review the following and provide your response in the progress notes.
Clinical Indicators:
Pt admitted with rectal bleeding due to hemorrhoids and recent hemorrhoid banding procedure
Documented per ED,' 3 g hemoglobin drop. ..'
H&P,' Patient stated that today she is having multiple episodes of bright blood per rectum some associated with blood clots, this was associated with a syncope event and she is having significant fatigue and shortness of breath. Rectal bleeding
happened about 15 times....Her hemoglobin as outpatient was in the 13-14 range...'
Progress note 07/15, ' Acute lower GI bleeding with rectal bleeding and recent hemorrhoidal banding 07/01/2023...Hgb 11.2--> 10.4--> 9.1--> 8.7 Type and screen obtained in the ER Follow CBC H&H...'
07/14/23 07/14/23 07/14/23
11:54 11:54 17:51
Hgb 11.2 L 10.4 L
Hct 32.5 L
07/14/23 07/15/23 07/15/23
17:51 00:24 00:24
Hgb 9.1 L
Hct 30.1 L 26.3 L
07/15/23 07/15/23 07/15/23
05:37 05:37 12:14
Hgb 8.7 L 9.6 L
Hct 25.3 L
07/15/23 07/16/23 07/16/23
12:14 05:54 05:54
Hgb 9.1 L
Hct 27.4 L 26.6 L
Please clarify a diagnosis for the above lab abnormality/treatment :
Acute blood loss anemia
Abnormal lab value of clinical insignificance
Other
Use of terms such as suspected, likely, concern for, or probable (associated with a specific diagnosis that is being evaluated, monitored, or treated as if it exists) are acceptable and can be coded in the inpatient setting, when documented at the
time of discharge.
Thank you,
Marla Ramirez RN
CDI Specialist
[facility]
Please use your independent medical judgment in providing your response.
[2023-07-16] MEDS: MIRALAX 8.5 GRAMS PO (10:41)
--- NOTE | 2023-07-16 11:23 | W.PN.CRS1 ---
Today's Communication / Plan
-
await bm
trend hgb
Assessment/Plan
-
Assessment: 57yo female with a recent h/o rubber band ligation of a hemorrhoid by Dr. Pollock presents with rectal bleeding
Plan:
1. Hgb 9.1 today. Repeat in the AM.
2. Vitals normal.
3. Tolerating home gluten free diet.
4. Continue home dose of Miralax.
5. Monitor for any further bleeding. Would like to see a BM prior to discharge. Recommend one more day of observation.
6. Patient can bring in home magnesium glycinate to take at night, which helps her have BMs.
Subjective Data
Subjective Data
Date of Service: July 16, 2023
Patient states she feels 'okay'. She has had no bowel movements since admission. She has flatus. She is eating her gluten free diet.
Objective Data
-
Vital Signs
Temp Pulse Resp BP Pulse Ox
97.6 F 86 16 124/79 99
07/16/23 07:10 07/16/23 07:10 07/16/23 07:10 07/16/23 07:10 07/16/23 07:10
Intake & Output
07/15/23 07/16/23 07/17/23
06:59 06:59 06:59
Intake Total 240 / 240 1200 / 1200
Balance 240 / 240 1200 / 1200
Intake:
Oral fluids 240 / 240 1200 / 1200
Other:
Number of approximated SMALL 1
amounts of urine
Number of approximated MODERATE 1 1
amounts of urine
Number of approximated LARGE 2
amounts of urine
Lab Results
07/16/23 05:54
07/16/23 05:54
Physical Exam
-
General: No Acute Distress and AOx3
Abdomen: Soft, Non Distended and Non Tender
Skin: Warm and Dry
[2023-07-16] MEDS: TYLENOL 650 MG PO (13:23)
[2023-07-16 13:32] LABS: Urine Albumin Negative (Neg - Trace); Urine Bilirubin Negative (Negative); Urine Character Clear (Clear); Urine Color Straw; Urine Glucose Negative (Negative); Urine Ketone Negative (Negative); Urine Leukocyte 2+ (Negative); Urine Nitrite Negative (Negative); Urine Occult Blood Negative (Negative); Urine Urobilinogen Negative (Neg - 1+)
[2023-07-16 13:43] LABS: Urine White Cell 21-25 /HPF (0-5)
[2023-07-16 13:44] LABS: Urine Red Blood Cell 0-2 /HPF (0-2)
[2023-07-16 13:45] LABS: Urine Bacteria Few (Negative)
--- NOTE | 2023-07-16 14:12 | CM ---
CM following re: discharge planning.
Reviewed pt's chart. per MD, continue monitoring hemoglobin, pt is doing better.
D/C plan: home with anticipated no needs. Family to transport at discharge.
CM will follow with discharge plan updates as hospitalization progresses.
[2023-07-16 15:05] VITALS: BP 120/76
[2023-07-16] MEDS: NON-FORMULARY ITEM 1 MG PO (22:15)
[2023-07-16 23:00] VITALS: BP 121/78
[2023-07-17] MEDS: VALIUM 2 MG PO ×3 (03:18→16:44)
[2023-07-17 06:34] LABS: Hematocrit 26.5 % (37.0-47.0); Mean Corpuscular Hgb 30.6 pg (27.0-31.0); Mean Corpuscular Volume 90.1 fL (81.0-99.0); Mean Platelet Volume 10.4 fL (7.4-10.4); Platelet Count 169 10^3/uL (130-400); Red Blood Cell Count 2.94 10^6/uL (4.20-5.40); Red Cell Dist. Width 13.1 % (11.5-14.5); White Blood Cell Count 3.5 10^3/uL (4.8-10.8)
[2023-07-17 07:34] VITALS: BP 132/62
--- NOTE | 2023-07-17 08:29 | W.PN.HOSP.TC ---
Today's Communication/Plan
-
Discharge planning in progress.
Assessment / Plan
Assessment / Plan
Physical exam:
General: Well Developed, Well Nourished.�
HEENT: Normocephalic, Atraumatic and Moist Mucous Membranes
Respiratory: Clear to Auscultation; Negative Wheezes, Rales or Rhonchi
Cardiac: Regular Rhythm and S1/S2
GI: Soft, non tender, and Nondistended
Musculoskeletal: No Clubbing, No Cyanosis and No Edema
Neuro: Awake, Alert and Oriented
Psych: Anxious
A/P:
# Acute lower GI bleeding with rectal bleeding and recent hemorrhoidal banding 07/01/2023
-Bleeding appears to have stopped but continue to monitor.
-Consult Dr. Pollock (colorectal surgeon) appreciated--> patient n.p.o. today and follow-up further colorectal surgery recommendations
-Off IV fluids
-Hgb 11.2--> 10.4--> 9.1--> 8.7-->9.1-->9
-Type and screen obtained in the ER
-Follow CBC
-H&H
-scoplamaine patch prn nausea
-Patient given transexamic acid infusion in ER
-Discharge disposition once cleared by colorectal surgery.-I discussed with patient that she is cleared for discharge today but she is adamant that she wants discuss again with rectal surgery about need for colonoscopy.
#Hypokalemia
-Came back to normal
#Palpitations
-I told her before we would put her on cardiac monitoring today but she refuses at this point and she wants to monitor her heart rate by herself.
#Mild hyperglycemia, stress related.
-BS 159, check HgbA1c--> 5.5
-No need for further workup
#Hx stiff person syndrome Dx 2016
-Patient gets left-sided- muscle spasms and fatigue
- takes Valium
-Reports can only take scopolamine patch for nausea
-PT eval
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
Treated with radiation and lumpectomy x 3
#Recent right middle lobe nodule 11 mm found on PET scan 07/10/2023
Patient to follow with oncologist at [place] as thought to be recurrence of her metastatic breast cancer
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
#Bladder lift with removal of mesh
DVT prophylaxis
SCDs
Full code
Anticipated Discharge: Today
Subjective/Interval History
-
Date of Service: July 17, 2023
Patient denies any further bleeding except for mild bloody spots, no chest pain or shortness of breath. Anxious.
Objective Data
-
Labs:
Laboratory Results
07/17/23
05:32
WBC 3.5 L
Hgb 9.0 L
Hct 26.5 L
Plt Count 169
Vital Signs:
Vital Signs
Temp Pulse Resp BP Pulse Ox
98.0 F 85 16 121/78 99
07/16/23 23:00 07/16/23 23:00 07/16/23 23:00 07/16/23 23:00 07/16/23 23:00
I&O
07/16/23 07/17/23 07/18/23
06:59 06:59 06:59
Intake Total 1200 / 1200 2820 / 2820
Balance 1200 / 1200 2820 / 2820
Review of Systems
-
All other systems: Reviewed and negative
[2023-07-17] MEDS: MIRALAX 8.5 GRAMS PO (09:12)
--- NOTE | 2023-07-17 09:53 | W.PN.CRS1 ---
Addendum entered and electronically signed by Shaka Curtis MD 07/17/23 14:05:
I saw and examined the patient.
The PA's note was reviewed and I agree with the note.
Comment:
Seen in a.m. with PA.
Patient anxious. Had a BM overnight with little blood.
Vitals normal. Hemoglobin 9.0/stable.
Abdomen soft.
Patient asking for a colonoscopy. Communicated with Dr. Pollock. No need for colonoscopy at this time.
Disposition per hospitalist.
Original Note:
Today's Communication / Plan
-
okay for d/c from our standpoint
Assessment/Plan
-
Assessment: 57yo female with a recent h/o rubber band ligation of a hemorrhoid by Dr. Pollock presents with rectal bleeding
Plan:
1. Hgb 9.0 today. No need for further checks from our standpoint.
2. Vitals normal.
3. Tolerating home gluten free diet.
4. Continue home dose of Miralax.
5. Okay for discharge from our standpoint. Discussed with Dr. Pollock, no need for a colonoscopy at this time.
Subjective Data
Subjective Data
Date of Service: July 17, 2023
Patient states she had a small bowel movement this morning that was a very small amount with some brown material with blood. She states this is not like her usual bowel movement. She has flatus. She is tolerating a diet. She has no nausea or
vomiting.
Objective Data
-
Vital Signs
Temp Pulse Resp BP Pulse Ox
97.8 F 86 15 132/62 100
07/17/23 07:34 07/17/23 07:34 07/17/23 07:34 07/17/23 07:34 07/17/23 07:34
Intake & Output
07/16/23 07/17/23 07/18/23
06:59 06:59 06:59
Intake Total 1200 / 1200 2820 / 2820
Balance 1200 / 1200 2820 / 2820
Intake:
Oral fluids 1200 / 1200 2820 / 2820
Other:
Number of approximated MODERATE 1 2
amounts of urine
Number of approximated LARGE 2 1
amounts of urine
Lab Results
07/17/23 05:32
07/16/23 05:54
Physical Exam
-
General: No Acute Distress and AOx3
Skin: Good Color
[2023-07-17] MEDS: TYLENOL 650 MG PO ×2 (12:28→21:52)
[2023-07-17 15:48] VITALS: BP 112/70
[2023-07-17 15:57] VITALS: BP 112/70; PULSE 128; O2SAT 100
[2023-07-17 16:01] VITALS: BMI 20.9
[2023-07-17] MEDS: CITROMA 150 ML PO (18:37)
[2023-07-17] MEDS: NON-FORMULARY ITEM PO (22:52)
[2023-07-17 23:40] VITALS: BP 123/70
[2023-07-18] MEDS: VALIUM 2 MG PO ×2 (05:53→14:25)
[2023-07-18 06:26] LABS: Hematocrit 26.6 % (37.0-47.0); Hemoglobin 9.3 g/dL (12.0-16.0); Mean Corpuscular Hgb 30.8 pg (27.0-31.0); Mean Corpuscular Volume 88.1 fL (81.0-99.0); Mean Platelet Volume 10.3 fL (7.4-10.4); Platelet Count 175 10^3/uL (130-400); Red Blood Cell Count 3.02 10^6/uL (4.20-5.40); Red Cell Dist. Width 13.3 % (11.5-14.5); White Blood Cell Count 3.5 10^3/uL (4.8-10.8)
--- NOTE | 2023-07-18 07:43 | W.PN.HOSP.TC ---
Today's Communication/Plan
-
Discharge planning today.
Assessment / Plan
Assessment / Plan
Physical exam:
General: Well Developed, Well Nourished.�
HEENT: Normocephalic, Atraumatic and Moist Mucous Membranes
Respiratory: Clear to Auscultation; Negative Wheezes, Rales or Rhonchi
Cardiac: Regular Rhythm and S1/S2
GI: Soft, non tender, and Nondistended
Musculoskeletal: No Clubbing, No Cyanosis and No Edema
Neuro: Awake, Alert and Oriented
Psych: Anxious
A/P:
# Acute lower GI bleeding with rectal bleeding and recent hemorrhoidal banding 07/01/2023
-Bleeding appears to have stopped but continue to monitor.
-Consult Dr. Pollock (colorectal surgeon) appreciated--> patient n.p.o. today and follow-up further colorectal surgery recommendations
-Off IV fluids
-Hgb 11.2--> 10.4--> 9.1--> 8.7-->9.1-->9-->9.3
-Type and screen obtained in the ER
-Follow CBC
-H&H
-scoplamaine patch prn nausea
-Patient given transexamic acid infusion in ER
-Discharge disposition once cleared by colorectal surgery.
-Colorectal surgery cleared for discharge today on 07/18
-Patient agreeable for discharge today
#Hypokalemia
-Came back to normal
#Palpitations
-In the absence of cardiac monitoring, hard to tell but suspect multifactorial related to anemia and anxiety but if it does persist then she can have a Holter as outpatient with her care advocate. She expresses understanding in terms of this.
-I told her before we would put her on cardiac monitoring but she refused at that point and she wants to monitor her heart rate by herself.
#Mild hyperglycemia, stress related.
-BS 159, check HgbA1c--> 5.5
-No need for further workup
#Hx stiff person syndrome Dx 2017
-Patient gets left-sided- muscle spasms and fatigue
- takes Valium
-Reports can only take scopolamine patch for nausea
-PT eval
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
Treated with radiation and lumpectomy x 3
#Recent right middle lobe nodule 11 mm found on PET scan 07/10/2023
Patient to follow with oncologist at [place] as thought to be recurrence of her metastatic breast cancer
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
#Bladder lift with removal of mesh
DVT prophylaxis
SCDs
Full code
Anticipated Discharge: Today
Subjective/Interval History
-
Date of Service: July 18, 2023
Patient feels well today. No more bleeding. She was able to move her bowels with magnesium citrate last evening.
Objective Data
-
Labs:
Laboratory Results
07/18/23
05:34
WBC 3.5 L
Hgb 9.3 L
Hct 26.6 L
Plt Count 175
Vital Signs:
Vital Signs
Temp Pulse Resp BP Pulse Ox
98.0 F 88 18 123/70 98
07/17/23 23:40 07/17/23 23:40 07/17/23 23:40 07/17/23 23:40 07/17/23 23:40
I&O
07/17/23 07/18/23 07/19/23
06:59 06:59 06:59
Intake Total 2820 / 2820 1919
Balance 2820 / 2820 1919
[2023-07-18 07:52] VITALS: BP 112/70
[2023-07-18] MEDS: MIRALAX 8.5 GRAMS PO (08:58)
[2023-07-18 09:23] VITALS: BMI 20.5
--- NOTE | 2023-07-18 10:02 | CM ---
Addendum entered by Samantha Quintero 07/18/23 10:21:
Home Health referral sent via [facility] to [facility] per patient's request
Original Note:
Met with patient at bedside to discuss discharge plan.
Explained that Home Health for PT was recommended; patient is agreeable
Attending provided script for [facility]
Patient undecided on home health agency preference at this time. Will follow up and send referral when decision is made
Transport: will provide ride home
Plan: discharge to home with Home Health for PT
--- NOTE | 2023-07-18 12:08 | W.DCSUMMARY ---
Discharge Summary
Discharge Data
Date of Admission: 07/14/23
Date of Discharge: 07/18/23
-
Pending Results: No
Hospital Course
Patient 57 years old female with history of metastatic breast cancer, stiff person syndrome, history of hemorrhoids for which she had rubber band ligation as outpatient a couple weeks prior to presentation, presented to the hospital with bright
blood per rectum. Patient was given tranexamic acid in the ER and her hemoglobin was monitored closely. Colorectal surgery was consulted. Patient hemoglobin remained stable, she also did not have any more major bleeding. Her anemia workup was
more revealing of anemia of chronic disease but we know also that she had some acute blood loss anemia. Colorectal surgeon cleared her for discharge today. She also had mild intermittent palpitations with possible tachycardia for which we offered
to have her on cardiac monitoring but she refused. Since she does not have any worrisome symptoms such as lightheadedness or syncope/near-syncope or other and remains relatively asymptomatic we discussed also that she does not need further work up
at present but if palpitations persists, we would recommend outpatient Holter monitor with her own health services coordinator. Otherwise, patient is hemodynamically stable and relatively asymptomatic today. She will be discharged in relatively stable condition
today.
Discharge duration: 35 minutes
Discharge Plan
-
Patient Disposition: Home (Routine Discharge)
Discharge Diagnosis/Procedures: Acute gastrointestinal bleed due to hemorrhoids and recent banding. Acute blood loss anemia. Stiff man syndrome. Transient tachycardia/Palpitations.
Diet: Regular
Activity: As tolerated
Driving Restrictions: As prior to admission
Blood Work: Please PCP or Colorectal-Surgery to order CBC, BMP within 1 week
Referrals:
Martin Pollock MD [Active] - in two to four weeks
Jonelle King DO [Family Provider] - in less than 1 week
Prescriptions:
Continued
polyethylene glycol 3350 [Miralax] 17 gram Powder In Packet
17 g PO HS
aspirin 81 mg Tablet,Delayed Release (Dr/Ec)
81 mg PO HS
acetaminophen [Tylenol Extra Strength] 500 mg Tablet
500 mg PO BIDPRN PRN (Reason: mild pain)
diazepam 2 mg Tablet
2 mg PO QIDPRN PRN (Reason: stiff person syndrome)
Patient Comments:
07/14/2023, pt. filled this med. on 05/11/2023 for 120 tablets according to PDMP.
cholecalciferol (vitamin D3) 25 mcg (1,000 unit) Tablet
25 mcg PO QPM
magnesium glycinate 100 mg Tablet
100 mg PO HS
Visbiome 112.5 billion cell Capsule
1 cap PO HS
omega 7-sth-wex-fish oil [Fish Oil] 1,000 mg (120 mg-180 mg) Capsule
1 cap PO QPM
Theracran 650 mg Capsule
650 mg PO NOON
Discharge Orders:
Discharge Patient (As Directed); Ordered 07/18/23
Ordered By: Ahsan Quiroz
Discharge Date and Time
Discharge Date/Time: 07/18/23 16:28
[2023-07-18] MEDS: TYLENOL 650 MG PO (12:25)
--- NOTE | 2023-07-18 13:17 | W.PN.CRS1 ---
Today's Communication / Plan
-
okay for dispo from our standpoint
Assessment/Plan
-
Assessment: 57yo female with a recent h/o rubber band ligation of a hemorrhoid by Dr. Pollock presents with rectal bleeding
Plan:
1. Hgb 9.3 today. No need for further checks from our standpoint.
2. Vitals normal.
3. Tolerating home gluten free diet.
4. Continue home dose of Miralax.
5. Okay for discharge from our standpoint. Discussed with Dr. Pollock, no need for a colonoscopy at this time. Dispo per hospitalist. CBC in 1 - 2 weeks.
Subjective Data
Subjective Data
Date of Service: July 18, 2023
Patient states she had 2 bowel movements since yesterday. She did not see any blood in her bowel movements. She overall feels weak. She denies nausea or vomiting. She is tolerating gluten-free diet.
Objective Data
-
Vital Signs
Temp Pulse Resp BP Pulse Ox
97.4 F 81 17 112/70 100
07/18/23 07:52 07/18/23 07:52 07/18/23 07:52 07/18/23 07:52 07/18/23 07:52
Intake & Output
07/17/23 07/18/23 07/19/23
06:59 06:59 06:59
Intake Total 2820 / 2820 1919
Balance 2820 / 2820 1919
Intake:
Oral fluids 2820 / 2820 1919
Other:
Number of approximated MODERATE 2 5
amounts of urine
Number of approximated LARGE 1
amounts of urine
How many times incontinent 4
MODERATE amount urine
Lab Results
07/18/23 05:34
07/16/23 05:54
Physical Exam
-
General: No Acute Distress and AOx3
Abdomen: Soft, Non Distended and Non Tender
Skin: Warm and Dry
[2023-07-18 15:40] VITALS: BP 110/73
== END 2023-07-18 16:28 | disposition home or self-care (01) | DRG 920 ==
LOC: 2 SOUTH 14:32
PROVIDERS: Clinical Nurse Specialist Family Health; Physician Assistant; ADMITTING PHYSICIAN Hospitalist; CONSULT PHYSICIAN Surgery; EMERGENCY PHYSICIAN Emergency Medicine; FAMILY PHYSICIAN Family Medicine
DX: K91.840 Postprocedural hemorrhage of a digestive system organ or structure following a digestive system procedure (principal); C78.00 Secondary malignant neoplasm of unspecified lung; K92.2 Gastrointestinal hemorrhage, unspecified; D62 Acute posthemorrhagic anemia; G25.82 Stiff-man syndrome; K64.9 Unspecified hemorrhoids; R73.9 Hyperglycemia, unspecified; E87.6 Hypokalemia; Z17.1 Estrogen receptor negative status [ER-]; C50.919 Malignant neoplasm of unspecified site of unspecified female breast; Z85.3 Personal history of malignant neoplasm of breast; Q96.9 Turner's syndrome, unspecified; D63.8 Anemia in other chronic diseases classified elsewhere; R00.2 Palpitations; R00.0 Tachycardia, unspecified
CPT/HCPCS: 80048; 80053; 81003; 81015; 82607; 82728; 82746; 83036; 83540; 83550; 83735; 85014; 85018; 85025; 85027; 85610; 85730; 86850; 86900; 86901; 87086; 94760; 96374; 97116; 97162; 97530; 99285

== ENCOUNTER 2023-11-20 15:19 | Emergency (ER) | payer BC, SELFPAY ==
[2023-11-20] VITALS (7 sets, daily range): BP systolic 108–175; BP diastolic 56–109; BMI 21.4
--- NOTE | 2023-11-20 16:05 | ED.GENMED ---
History of Present Illness
General
Chief Complaint: Rectal Bleeding
Source: patient
Exam Limitations: none
Time Seen by Provider: 11/20/23 16:00
Travel History
Have you had any contact with someone who has COVID-19?: No
Do you have any symptoms of coronavirus? Fever > 100 degrees, chills, cough, shortness of breath, sore throat, loss of taste or smell, muscle aches, or headache?: No
History of Present Illness
History of Present Illness:
See MDM
Past History
Past History
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
ED Past Surgical History: Other (Hemorrhoid banding)
Social History
Tobacco: Non-smoker
Alcohol: None
Drug: None
Personal:
Living: with family
Phy Exam
Physical Exam
Physical Exam:
See MDM
Course
Orders/Labs/Results
Orders:
Orders
11/20/23 16:17
CT Abd/pelvis W Iv Cont Urgent
Comment:
Reason For Exam: intermittent rectal bleeding, hx hemorrhoids
Diphenhydramine [Benadryl] 50 mg IV NOW STA
Hydrocortisone Sod Succinate [Solu-Cortef] 200 mg IV NOW STA
Lorazepam [Ativan] 1 mg IV NOW STA
11/20/23 16:48
Type+Screen Urgent
Complete Blood Count/With Diff Urgent
Comprehensive Metabolic Panel Urgent
PTT Urgent
Prothrombin Time Urgent
Abnormal Lab Results
11/20/23
16:48
Absolute Lymphs (auto) 1.0 L 10^3/uL
(1.2-3.4)
Lymphocytes % 19.4 L %
(20.5-51.1)
Glucose 109 H mg/dl
(70-99)
11/20/23 16:48
11/20/23 16:48
Vital Signs
Initial and Last Documented VS:
Initial Vital Signs
Temp Pulse Resp BP Pulse Ox
98.3 F 105 20 175/109 99
11/20/23 15:21 11/20/23 15:21 11/20/23 15:21 11/20/23 15:21 11/20/23 15:21
Last Documented Vital Signs
Temp Pulse Resp BP Pulse Ox
98.3 F 76 21 125/60 95
11/20/23 15:21 11/20/23 18:15 11/20/23 17:00 11/20/23 18:05 11/20/23 18:15
MDM/Problems Addressed
Differential Diagnosis Includes:
HPI and MDM Narrative:
58-year-old female presenting for evaluation of bright red rectal bleeding. This occurred multiple times earlier today. Patient states it sometimes occurs with stool as sometimes occurs on its own. Patient does have a history of GI bleeding.
Prior records indicates she has history of internal hemorrhoids that required banding.
Patient also complaining of abdominal pressure. Patient states her bleeding is flaring up her stiff person syndrome. She states she usually requires benzodiazepines when this happens.
Given her history, will obtain hemoglobin and will obtain CT abdomen/pelvis
Physical exam
General: Well appearing and non-toxic
HEENT: protecting airway
Neck: appears supple
CV: No evidence of cyanosis
Resp: No accessory muscle use
Abd: Non-distended. Mild suprapubic tenderness. No rebound
Rectal: Performed with nurse assembler utility buildings Sunni at bedside. External hemorrhoids noted without active bleeding
Extremities: No deformities
Neuro: alert
Psych: Anxious
Skin: Intact
Problems Addressed including Acute and Chronic Conditions affecting care:
1. Lower GI bleeding
Acuity: acute
Prognosis: stable
Details: Likely in setting of hemorrhoids.
Updates
Hemoglobin stable. CT negative for acute pathology. Patient feels comfortable going home
Differential Diagnosis (but not limited to): Hemorrhoid bleeding, diverticulosis
Testing considered: Stool culture
Drug therapy (if applicable): OTC meds, please see d/c instruction regarding Rx drugs
Amount and/or Complexity of Data Reviewed
Clinical info obtained from: Patient
External data reviewed: History of internal hemorrhoids required banding
Labs I independently reviewed (but not limited to): Hemoglobin
Radiology: The CT scan was personally and independently reviewed. In addition, official CT report reviewed.
Pulse Ox: not hypoxic
EKG independently reviewed: N/A
Premium Note Interest Calculator Clerk: N/A
Critical Care: N/A
Risk of Complication:
Social Determinants of health: Good social support
Discussed with other providers: N/A
Escalation of Care includes Admit/Obs: After being observed in the Emergency Department, pt stable for discharge.
Occasional wrong word or 'sound a like' substitutions may have occurred due to the inherent limitations of voice recognition software. Read the chart carefully and recognize, using context, where substitutions have occurred.
*Critical Care Note
Total Time (30-74mins, 75-104mins- exclusive of procedures): Not Applicable
ED Attending Note
-
Portions of this chart may have been created with voice recognition software.� Occasional wrong word or��sound alike� substitutions may have occurred due to the inherent limitations of voice recognition software.
Discharge Plan
Departure
Patient Disposition: Home (Routine Discharge)
Date of Disposition: 11/20/23
Time of Disposition: 20:51
Patient with high blood pressure during this ER visit?: No
Discharge Problem:
Bleeding internal hemorrhoids
Prescriptions:
No Action
polyethylene glycol 3350 [Miralax] 17 gram Powder In Packet
8.5 g PO HS
diazepam 2 mg Tablet
2 mg PO BID
cholecalciferol (vitamin D3) 25 mcg (1,000 unit) Tablet
25 mcg PO QPM
magnesium glycinate 100 mg Tablet
100 mg PO BID
Visbiome 112.5 billion cell Capsule
1 cap PO HS
Theragen Tablet
1 tab PO DAILY
diazepam 2 mg Tablet
2 mg PO DAILYPRN PRN (Reason: stiff person syndrome)
metoprolol succinate 25 mg Tablet Extended Release 24 Hr
25 mg PO HSPRN PRN (Reason: rapid heartbeat)
Referrals:
Audrey Pope DO [Family Provider] -
Activity Restrictions/Additional Instructions:
Please return for any worsening symptoms.
You may return at any time if you have further concerns.
Please follow up with your doctor at the first available appointment, preferably this week.
Please make an appointment to see the colorectal team.
Thank you for choosing [facility].
Interventions
Interventions:
*Risk Screen - Suicide Last Done: 11/20/23 15:21
*General Assessment Last Done: 11/20/23 15:21
*Neglect/Abuse Screening Last Done: 11/20/23 15:21
BN-[facility] Assessment Last Done: 11/20/23 16:55
ED- Cardiac Assessment Last Done: 11/20/23 16:55
ED- Pulmonary Assessment Last Done: 11/20/23 16:55
Discharge Date and Time
Print Language: PUERTO RICAN
[2023-11-20] MEDS: SOLU-CORTEF 200 MG IV (16:52)
[2023-11-20 16:59] LABS: % Basophils 0.8 % (0-2); % Immature Granulocytes 0.2 % (0-0.5); % Lymphocytes 19.4 % (20.5-51.1); % Monocytes 6.8 % (1.7-9.3); % Neutrophils 71.8 % (42.2-75.2); Absolute Eosinophils 0.1 10^3/uL (0-0.7); Absolute Monocytes 0.4 10^3/uL (0.1-0.6); Absolute Neutrophils 3.7 10^3/uL (1.4-6.5); Hematocrit 40.3 % (37.0-47.0); Mean Corp Hgb Conc. 34.7 g/dL (33.0-37.0); Mean Corpuscular Hgb 29.4 pg (27.0-31.0); Mean Corpuscular Volume 84.7 fL (81.0-99.0); Mean Platelet Volume 9.8 fL (7.4-10.4); Nucleated Red Blood Cells % 0 %; Platelet Count 188 10^3/uL (130-400); Red Blood Cell Count 4.76 10^6/uL (4.20-5.40); Red Cell Dist. Width 13.6 % (11.5-14.5); White Blood Cell Count 5.2 10^3/uL (4.8-10.8)
[2023-11-20] MEDS: BENADRYL 50 MG IV (17:00)
[2023-11-20] MEDS: ATIVAN 1 MG IV (17:05)
[2023-11-20 17:09] LABS: INR 1.02; PT 13.4 Sec (11.4-14.6)
[2023-11-20 17:10] LABS: APTT 29.4 Sec (23.4-35.0)
[2023-11-20 17:12] LABS: ALT (SGPT) 19 U/L (0-35); AST (SGOT) 27 U/L (14-36); Albumin 4.7 g/dl (3.5-5.0); Alkaline Phosphatase 52 U/L (38-126); Blood Urea Nitrogen 13 mg/dl (7-17); Carbon Dioxide 28 mmol/L (22-30); Chloride 98 mmol/L (98-107); Estimated Creatinine Clearance 68 ml/min; Glucose 109 mg/dl (70-99); Potassium 3.8 mmol/L (3.5-5.1); Sodium 135 mmol/L (135-145); Total Bilirubin 0.6 mg/dl (0.2-1.3); Total Protein 7.2 g/dl (6.3-8.2); eGFR > 60.00
== END 2023-11-20 21:32 | disposition home or self-care (01) ==
LOC: EMR 15:19
PROVIDERS: EMERGENCY PHYSICIAN Student in an Organized Health Care Education/Training Program; FAMILY PHYSICIAN Family Medicine
DX: K64.8 Other hemorrhoids (principal)
CPT/HCPCS: 99285; 96374; 96375 ×2; 74177; 80053; 85025; 85610; 85730; 86850; 86900; 86901; Q9967

== ENCOUNTER 2024-07-21 08:11 | Outpatient (RCR) | payer BC, SELFPAY | END 2024-07-21 23:59 | disposition home or self-care (01) | LOC: RPT 08:11 | PROVIDERS: ATTENDING PHYSICIAN Nurse Practitioner Adult Health; FAMILY PHYSICIAN Family Medicine | DX: C50.911 Malignant neoplasm of unspecified site of right female breast (principal); R53.0 Neoplastic (malignant) related fatigue; L90.5 Scar conditions and fibrosis of skin | CPT/HCPCS: 97163; 97530 ==

== ENCOUNTER → 2024-08-12 16:38 | Outpatient (REF) | payer BC, SELFPAY ==
[2024-08-12 17:19] LABS: Urine Albumin Negative (Neg - Trace); Urine Bilirubin Negative (Negative); Urine Character Clear (Clear); Urine Glucose Negative (Negative); Urine Ketone Negative (Negative); Urine Leukocyte 1+ (Negative); Urine Nitrite Negative (Negative); Urine Occult Blood 1+ (Negative); Urine Urobilinogen Negative (Neg - 1+)
[2024-08-12 17:25] LABS: Urine Color Straw
[2024-08-12 17:26] LABS: Urine Bacteria Few (Negative); Urine Red Blood Cell 0-2 /HPF (0-2); Urine Squamous Cell 0-2 /LPF (Few)
== END ==
LOC: REG 16:38
PROVIDERS: ATTENDING PHYSICIAN Obstetrics & Gynecology; FAMILY PHYSICIAN Family Medicine
DX: N39.0 Urinary tract infection, site not specified (principal)
CPT/HCPCS: 81003; 81015; 87086

== ENCOUNTER 2024-08-22 15:08 | Outpatient (RCR) | payer BC, SELFPAY | END 2024-08-22 23:59 | disposition home or self-care (01) | LOC: RPT 15:08 | PROVIDERS: ATTENDING PHYSICIAN Nurse Practitioner Adult Health; FAMILY PHYSICIAN Family Medicine | DX: I97.2 Postmastectomy lymphedema syndrome (principal); C50.911 Malignant neoplasm of unspecified site of right female breast (principal); R53.0 Neoplastic (malignant) related fatigue; L90.5 Scar conditions and fibrosis of skin; C78.00 Secondary malignant neoplasm of unspecified lung; Z73.6 Limitation of activities due to disability | CPT/HCPCS: 97110; 97140; 97530 ==

== ENCOUNTER 2024-09-07 15:10 | Outpatient (RCR) | payer BC, SELFPAY | END 2024-09-07 23:59 | disposition home or self-care (01) | LOC: RPT 15:10 | PROVIDERS: ATTENDING PHYSICIAN Physical Medicine & Rehabilitation; FAMILY PHYSICIAN Family Medicine | DX: M51.360 Other intervertebral disc degeneration, lumbar region with discogenic back pain only (principal); M62.89 Other specified disorders of muscle; R10.2 Pelvic and perineal pain; Z73.6 Limitation of activities due to disability; M62.81 Muscle weakness (generalized); Z85.3 Personal history of malignant neoplasm of breast | CPT/HCPCS: 97163; 97530 ==

== ENCOUNTER 2024-10-05 19:06 | Outpatient (RCR) | payer BC, SELFPAY | END 2024-10-05 23:59 | disposition home or self-care (01) | LOC: RPT 19:06 | PROVIDERS: ATTENDING PHYSICIAN Physical Medicine & Rehabilitation; FAMILY PHYSICIAN Family Medicine | DX: M51.360 Other intervertebral disc degeneration, lumbar region with discogenic back pain only (principal); M62.89 Other specified disorders of muscle; R10.2 Pelvic and perineal pain; Z73.6 Limitation of activities due to disability; M62.81 Muscle weakness (generalized); Z85.3 Personal history of malignant neoplasm of breast | CPT/HCPCS: 97140; 97530 ==

== ENCOUNTER 2024-10-27 18:43 | Outpatient (RCR) | payer BC, SELFPAY | END 2024-10-27 23:59 | disposition home or self-care (01) | LOC: RPT 18:43 | PROVIDERS: ATTENDING PHYSICIAN Physical Medicine & Rehabilitation; FAMILY PHYSICIAN Family Medicine | DX: M51.360 Other intervertebral disc degeneration, lumbar region with discogenic back pain only (principal); M62.89 Other specified disorders of muscle; R10.2 Pelvic and perineal pain; Z73.6 Limitation of activities due to disability; M62.81 Muscle weakness (generalized); Z85.3 Personal history of malignant neoplasm of breast | CPT/HCPCS: 97140; 97530 ==

== ENCOUNTER 2024-12-14 06:21 | Day surgery (SDC) | payer BC, SELFPAY ==
[2024-12-07 14:18] VITALS: BMI 21.4
[2024-12-07 14:42] LABS: Hematocrit 42.3 % (37.0-47.0); Hemoglobin 14.5 g/dL (12.0-16.0); Mean Corp Hgb Conc. 34.3 g/dL (33.0-37.0); Mean Corpuscular Volume 88.3 fL (81.0-99.0); Platelet Count 191 10^3/uL (130-400); Red Cell Dist. Width 12.4 % (11.5-14.5)
[2024-12-14] VITALS (9 sets, daily range): BP systolic 117–176; BP diastolic 46–88; BMI 21.4
[2024-12-14] MEDS: TYLENOL 1000 MG PO (12:18)
[2024-12-14] MEDS: NORMOSOL-R/PLASMALYTE-A 1000 IV (12:20)
[2024-12-14] MEDS: ZOFRAN 4 MG IV (14:36)
== END 2024-12-14 17:25 | disposition home or self-care (01) ==
LOC: SDS 06:21
PROVIDERS: ATTENDING PHYSICIAN Surgery; FAMILY PHYSICIAN Family Medicine
DX: K64.8 Other hemorrhoids (principal); K64.4 Residual hemorrhoidal skin tags
CPT/HCPCS: 46260; 36415; 85027; 88304

== ENCOUNTER 2025-04-12 17:10 | Outpatient (RCR) | payer BC, SELFPAY | END 2025-04-12 23:59 | disposition home or self-care (01) | LOC: RPT 17:10 | PROVIDERS: ATTENDING PHYSICIAN Physical Medicine & Rehabilitation; FAMILY PHYSICIAN Family Medicine | DX: R10.20 Pelvic and perineal pain unspecified side (principal); M62.89 Other specified disorders of muscle; Z73.6 Limitation of activities due to disability | CPT/HCPCS: 97014; 97110; 97140; 97163; 97530 ==